=== PATIENT | male | born 1935 | race Caucasian/White ===

== ENCOUNTER 2023-11-15 07:10 | Inpatient (IN) ==
[2023-11-15] MEDS ORDERED: GADOBENATE DIMEGLUMINE 15 ML/VIAL IV ONE (07:11)
[2023-11-15 08:03] LABS: Basophils # (Auto) 0.04 K/mcL (0.00-0.30); Basophils % (Auto) 0.3 % (0.0-2.0); Eosinophils # (Auto) 0.05 K/mcL (0.00-0.70); Eosinophils % (Auto) 0.4 % (0.0-7.0); Hematocrit 26.6 % (40.1-51.0); Hemoglobin 8.7 g/dL (13.7-17.5); Lymphocytes # (Auto) 1.85 K/mcL (1.50-4.80); Lymphocytes % (Auto) 13.7 % (15.5-49.0); Mean Cell Volume 92.7 fL (80.0-100.0); Mean Corpuscular HGB Conc 32.7 g/dL (31.0-36.0); Mean Platelet Volume 10.2 fL (8.8-12.5); Monocytes # (Auto) 0.69 K/mcL (0.10-0.90); Monocytes % (Auto) 5.1 % (1.0-12.0); Neutrophils % (Auto) 80.2 % (38.0-78.0); Platelet Count 119 K/mcL (140-440); RBC 2.87 M/mcL (4.63-6.08); Red Cell Distribution Width 14.1 % (11.5-14.5); WBC 13.5 K/mcL (4.5-11.0)
[2023-11-15 08:05] LABS: Erythrocyte Sedimentation Rate <= 1 mm/hr (0-20)
[2023-11-15 08:29] LABS: ALT/SGPT 16 U/L (<40); AST/SGOT 21 U/L (<40); Albumin 3.2 gm/dL (3.2-5.2); Albumin/Globulin Ratio 1.3 (1.0-2.3); Alkaline Phosphatase 53 U/L (39-117); Bilirubin,Total 0.4 mg/dL (0.1-1.0); Blood Urea Nitrogen 30 mg/dL (8-23); C-Reactive Protein 1.98 mg/dL (0.03-0.80); Calcium 9.1 mg/dL (8.6-10.4); Carbon Dioxide 21 mmol/L (22-30); Chloride 99 mmol/L (96-108); Globulin 2.4 gm/dL (2.2-3.7); Glomerular Filtration Rate 35; Glucose 125 mg/dL (70-105); Potassium 4.1 mmol/L (3.3-5.1); Sodium 131 mmol/L (133-145)
[2023-11-15 09:13] LABS: Appearance,Urine Clear (Clear); Bilirubin,Urine Negative (Negative); Color,Urine Yellow; Glucose,Urine (UA) Negative (Negative); Ketones,Urine Negative (Negative); Leukocyte Esterase,Urine Negative /uL (Negative); Nitrate,Urine Negative (Negative); PH,Urine 5.5 (5.0-9.0); Protein,Urine Negative (Negative); Urine Blood Moderate ery/mcL (Negative); Urine RBC 1 /hpf (0-3); Urine Squamous Epithelial Cell 0 /hpf (0-4); Urine WBC 1 /hpf (0-4); Urobilinogen,Urine Normal
[2023-11-15] MEDS: morphine 2 MG/ML VIAL IV ONE (09:21)
[2023-11-15] MEDS: VANCOMYCIN 1,000 MG in 0.9 % SODIUM CHLORIDE 250 ML IV ONE (12:18)
[2023-11-15] MEDS: CEFEPIME 1 GM VIAL IV ONE (12:18)
[2023-11-15] MEDS: MIDAZOLAM 2 MG/2 ML VIAL IV ONE (16:49)
[2023-11-15] MEDS: fentaNYL 100 MCG/2 ML VIAL IV ONE (16:50)
[2023-11-15] MEDS: morphine 4 MG/ML VIAL IV ONE (17:48)
[2023-11-15 19:09] LABS: Hematocrit 27.1 % (40.1-51.0); Hemoglobin 8.4 g/dL (13.7-17.5)
[2023-11-15 19:18] LABS: INR 1.3 (0.9-1.1); Prothrombin Time 16.5 sec (11.9-14.5)
[2023-11-15] MEDS: VANCOMYCIN PER PHARMACY IV ONE (19:20)
[2023-11-15] MEDS: TRANEXAMIC ACID 1,000 MG/10 ML VIAL IV ONE (19:50)
[2023-11-15] MEDS: metroNIDAZOLE 500 MG/100 ML BAG IV SCH (20:40)
[2023-11-15] MEDS ORDERED: IPRATROPIUM/ALBUTEROL 3 ML AMPUL.NEB NEB PRN (21:39)
[2023-11-15] MEDS ORDERED: ACETAMINOPHEN 325 MG TABLET PO PRN (21:39)
[2023-11-15] MEDS: LACTATED RINGERS 1,000 ML IV SCH ×2 (21:45→21:46)
[2023-11-15] MEDS: CIPROFLOXACIN 400 MG/200 ML BAG IV SCH (23:04)
[2023-11-15] MEDS: 0.9 % SODIUM CHLORIDE 10 ML SYRINGE IV SCH (23:06)
[2023-11-15 23:16] LABS: Hemoglobin 7.8 g/dL (13.7-17.5)
[2023-11-16 06:30] LABS: Vancomycin,Random 5.8 ug/mL
[2023-11-16 06:38] LABS: ALT/SGPT 15 U/L (<40); AST/SGOT 28 U/L (<40); Albumin/Globulin Ratio 1.4 (1.0-2.3); Alkaline Phosphatase 49 U/L (39-117); Bilirubin,Direct 0.2 mg/dL (<0.3); Bilirubin,Total 0.6 mg/dL (0.1-1.0); Blood Urea Nitrogen 35 mg/dL (8-23); Calcium 8.6 mg/dL (8.6-10.4); Carbon Dioxide 21 mmol/L (22-30); Chloride 100 mmol/L (96-108); Globulin 2.2 gm/dL (2.2-3.7); Glomerular Filtration Rate 33; Glucose 108 mg/dL (70-105); Lactate Dehydrogenase 172 U/L (135-225); Phosphorous 3.6 mg/dL (2.5-4.5); Potassium 4.4 mmol/L (3.3-5.1); Sodium 132 mmol/L (133-145); Triglycerides 144 mg/dL (<150); Uric Acid 5.9 mg/dL (2.5-8.0)
[2023-11-16 06:43] LABS: Basophils # (Auto) 0.03 K/mcL (0.00-0.30); Basophils % (Auto) 0.3 % (0.0-2.0); Eosinophils # (Auto) 0.08 K/mcL (0.00-0.70); Eosinophils % (Auto) 0.9 % (0.0-7.0); Hematocrit 24.3 % (40.1-51.0); Hemoglobin 7.9 g/dL (13.7-17.5); Lymphocytes # (Auto) 1.82 K/mcL (1.50-4.80); Lymphocytes % (Auto) 19.9 % (15.5-49.0); Mean Cell Volume 94.6 fL (80.0-100.0); Mean Corpuscular HGB Conc 32.5 g/dL (31.0-36.0); Mean Platelet Volume 10.3 fL (8.8-12.5); Monocytes # (Auto) 0.54 K/mcL (0.10-0.90); Monocytes % (Auto) 5.9 % (1.0-12.0); Neutrophils % (Auto) 72.9 % (38.0-78.0); Platelet Count 124 K/mcL (140-440); RBC 2.57 M/mcL (4.63-6.08); Red Cell Distribution Width 14.3 % (11.5-14.5); WBC 9.2 K/mcL (4.5-11.0)
[2023-11-16] MEDS: ACETAMINOPHEN 1,000 MG/100 ML BAG IV SCH (12:17)
[2023-11-16 13:05] LABS: Thyroid Stimulating Hormone 6.87 uIU/mL (0.27-5.01)
[2023-11-16 13:10] LABS: Hemoglobin A1C 5.3 % Hgb (4.0-6.0)
[2023-11-16] MEDS: morphine 4 MG/ML VIAL IV SCH (13:56)
[2023-11-16] MEDS ORDERED: GADOBENATE DIMEGLUMINE 15 ML/VIAL IV ONE (14:21)
[2023-11-16] MEDS: ONDANSETRON 4 MG/2 ML VIAL IV PRN (15:07)
[2023-11-16 15:43] LABS: Hematocrit 23.2 % (40.1-51.0); Hemoglobin 7.4 g/dL (13.7-17.5)
[2023-11-16] MEDS: CYCLOBENZAPRINE 10 MG TABLET PO PRN (21:12)
[2023-11-16] MEDS: ACETAMINOPHEN 325 MG TABLET PO PRN (21:12)
[2023-11-16] MEDS: BRIMONIDINE OPHTH DROPS 1 GTT BOTTLE 5ML OU SCH (22:11)
[2023-11-16] MEDS: 0.9 % SODIUM CHLORIDE 10 ML SYRINGE IV SCH (22:12)
[2023-11-17 00:06] LABS: Hematocrit 20.8 % (40.1-51.0); Hemoglobin 6.7 g/dL (13.7-17.5)
[2023-11-17] MEDS: 0.9 % SODIUM CHLORIDE 250 ML IV SCH (01:49)
[2023-11-17 06:22] LABS: Basophils # (Auto) 0.03 K/mcL (0.00-0.30); Basophils % (Auto) 0.4 % (0.0-2.0); Eosinophils # (Auto) 0.17 K/mcL (0.00-0.70); Eosinophils % (Auto) 2.2 % (0.0-7.0); Hematocrit 28.5 % (40.1-51.0); Hemoglobin 9.4 g/dL (13.7-17.5); Lymphocytes # (Auto) 1.41 K/mcL (1.50-4.80); Lymphocytes % (Auto) 18.5 % (15.5-49.0); Mean Cell Volume 92.8 fL (80.0-100.0); Mean Platelet Volume 10.2 fL (8.8-12.5); Monocytes # (Auto) 0.39 K/mcL (0.10-0.90); Monocytes % (Auto) 5.1 % (1.0-12.0); Neutrophils % (Auto) 73.3 % (38.0-78.0); Platelet Count 114 K/mcL (140-440); RBC 3.07 M/mcL (4.63-6.08); Red Cell Distribution Width 14.1 % (11.5-14.5); WBC 7.6 K/mcL (4.5-11.0)
[2023-11-17 06:31] LABS: ALT/SGPT 14 U/L (<40); AST/SGOT 27 U/L (<40); Albumin 2.9 gm/dL (3.2-5.2); Albumin/Globulin Ratio 1.4 (1.0-2.3); Alkaline Phosphatase 55 U/L (39-117); Bilirubin,Direct 0.5 mg/dL (<0.3); Bilirubin,Total 1.4 mg/dL (0.1-1.0); Blood Urea Nitrogen 35 mg/dL (8-23); Calcium 8.2 mg/dL (8.6-10.4); Carbon Dioxide 21 mmol/L (22-30); Chloride 103 mmol/L (96-108); Globulin 2.1 gm/dL (2.2-3.7); Glomerular Filtration Rate 35; Glucose 99 mg/dL (70-105); Lactate Dehydrogenase 193 U/L (135-225); Phosphorous 3.2 mg/dL (2.5-4.5); Potassium 4.1 mmol/L (3.3-5.1); Sodium 134 mmol/L (133-145); Triglycerides 114 mg/dL (<150); Uric Acid 5.8 mg/dL (2.5-8.0)
[2023-11-17] MEDS: OMEPRAZOLE 20 MG CAPSULE PO SCH (07:18)
[2023-11-17] MEDS: LEVOTHYROXINE 75 MCG TABLET PO SCH (07:18)
[2023-11-17] MEDS: 0.9 % SODIUM CHLORIDE 10 ML SYRINGE IV PRN (07:19)
[2023-11-17] MEDS ORDERED: VIT C E ZN COPPR LUTEIN ZEAXAN PO SCH (09:00)
[2023-11-17] MEDS ORDERED: [UNRECOGNIZED DRUG - OTHER] PO SCH (09:00)
[2023-11-17] MEDS: TAMSULOSIN 0.4 MG CAPSULE PO SCH (10:07)
[2023-11-17] MEDS: ATORVASTATIN 40 MG TABLET PO SCH (20:17)
[2023-11-18 07:07] LABS: Basophils # (Auto) 0.02 K/mcL (0.00-0.30); Basophils % (Auto) 0.2 % (0.0-2.0); Eosinophils # (Auto) 0.11 K/mcL (0.00-0.70); Eosinophils % (Auto) 1.3 % (0.0-7.0); Hematocrit 26.9 % (40.1-51.0); Lymphocytes # (Auto) 1.34 K/mcL (1.50-4.80); Lymphocytes % (Auto) 15.9 % (15.5-49.0); Mean Cell Volume 93.1 fL (80.0-100.0); Mean Corpuscular HGB Conc 33.5 g/dL (31.0-36.0); Monocytes # (Auto) 0.49 K/mcL (0.10-0.90); Monocytes % (Auto) 5.8 % (1.0-12.0); Neutrophils % (Auto) 76.4 % (38.0-78.0); Platelet Count 140 K/mcL (140-440); RBC 2.89 M/mcL (4.63-6.08); Red Cell Distribution Width 14.8 % (11.5-14.5); WBC 8.4 K/mcL (4.5-11.0)
[2023-11-18 07:19] LABS: ALT/SGPT 11 U/L (<40); AST/SGOT 21 U/L (<40); Albumin 2.7 gm/dL (3.2-5.2); Albumin/Globulin Ratio 1.4 (1.0-2.3); Alkaline Phosphatase 59 U/L (39-117); Bilirubin,Direct 0.4 mg/dL (<0.3); Blood Urea Nitrogen 29 mg/dL (8-23); Calcium 7.8 mg/dL (8.6-10.4); Carbon Dioxide 21 mmol/L (22-30); Chloride 100 mmol/L (96-108); Glomerular Filtration Rate 44; Glucose 98 mg/dL (70-105); Lactate Dehydrogenase 196 U/L (135-225); Phosphorous 2.3 mg/dL (2.5-4.5); Potassium 4.1 mmol/L (3.3-5.1); Sodium 129 mmol/L (133-145); Triglycerides 87 mg/dL (<150); Uric Acid 5.1 mg/dL (2.5-8.0)
[2023-11-18] MEDS: 0.9 % SODIUM CHLORIDE 1,000 ML IV SCH ×2 (07:59→20:10)
[2023-11-18] MEDS: SENNOSIDES 1 TABLET PO PRN (08:18)
[2023-11-18] MEDS: POLYETHYLENE GLYCOL 3350 17 GM PACKET PO PRN (08:18)
[2023-11-18] MEDS: SENNOSIDES 1 TABLET PO SCH (09:17)
[2023-11-18 18:07] LABS: Blood Urea Nitrogen 30 mg/dL (8-23); Calcium 7.9 mg/dL (8.6-10.4); Carbon Dioxide 21 mmol/L (22-30); Chloride 98 mmol/L (96-108); Glomerular Filtration Rate 41; Glucose 110 mg/dL (70-105); Potassium 4.2 mmol/L (3.3-5.1); Sodium 128 mmol/L (133-145)
[2023-11-18] MEDS: SODIUM CHLORIDE 1 GM TABLET PO SCH (21:10)
[2023-11-19 06:52] LABS: Basophils # (Auto) 0.02 K/mcL (0.00-0.30); Basophils % (Auto) 0.2 % (0.0-2.0); Eosinophils # (Auto) 0.16 K/mcL (0.00-0.70); Eosinophils % (Auto) 1.9 % (0.0-7.0); Hematocrit 26.6 % (40.1-51.0); Hemoglobin 8.9 g/dL (13.7-17.5); Lymphocytes # (Auto) 1.05 K/mcL (1.50-4.80); Lymphocytes % (Auto) 12.8 % (15.5-49.0); Mean Cell Volume 93.7 fL (80.0-100.0); Mean Corpuscular HGB Conc 33.5 g/dL (31.0-36.0); Mean Platelet Volume 10.1 fL (8.8-12.5); Monocytes # (Auto) 0.51 K/mcL (0.10-0.90); Monocytes % (Auto) 6.2 % (1.0-12.0); Neutrophils % (Auto) 78.5 % (38.0-78.0); Platelet Count 157 K/mcL (140-440); RBC 2.84 M/mcL (4.63-6.08); Red Cell Distribution Width 15.4 % (11.5-14.5); WBC 8.2 K/mcL (4.5-11.0)
[2023-11-19 07:00] LABS: ALT/SGPT 9 U/L (<40); AST/SGOT 17 U/L (<40); Albumin 2.5 gm/dL (3.2-5.2); Albumin/Globulin Ratio 1.3 (1.0-2.3); Alkaline Phosphatase 58 U/L (39-117); Bilirubin,Direct 0.4 mg/dL (<0.3); Bilirubin,Total 0.8 mg/dL (0.1-1.0); Blood Urea Nitrogen 29 mg/dL (8-23); Calcium 7.7 mg/dL (8.6-10.4); Carbon Dioxide 20 mmol/L (22-30); Chloride 103 mmol/L (96-108); Glomerular Filtration Rate 48; Glucose 99 mg/dL (70-105); Lactate Dehydrogenase 198 U/L (135-225); Phosphorous 2.1 mg/dL (2.5-4.5); Sodium 131 mmol/L (133-145); Triglycerides 79 mg/dL (<150)
[2023-11-19] MEDS: 0.9 % SODIUM CHLORIDE 1,000 ML IV SCH (09:47)
[2023-11-19] MEDS: SODIUM PHOSPHATE 30 MMOL in DEXTROSE 5% IN WATER 500 ML IV ONE (10:39)
[2023-11-19] MEDS: CALCIUM GLUCONATE 9.3 MEQ in DEXTROSE 5% IN WATER 50 ML IV ONE (12:14)
== END 2023-11-19 14:00 | DRG 604 ==
LOC: ED 07:10 → ICU 21:31
PROVIDERS: ADMIT Student in an Organized Health Care Education/Training Program; ATTEND Student in an Organized Health Care Education/Training Program